=== PATIENT | female | born 1970 | race Caucasian/White ===

== ENCOUNTER → 2021-01-14 | Outpatient (CLI) | payer BC | LOC: CT 09:02 | DX: R19.7 Diarrhea, unspecified (principal); R10.13 Epigastric pain; K29.90 Gastroduodenitis, unspecified, without bleeding; R11.0 Nausea | CPT/HCPCS: 36415; 82565; 84520; Q9967 ==

== ENCOUNTER → 2021-02-04 | Outpatient (CLI) | payer BC | LOC: NM 12:27 | DX: R10.13 Epigastric pain (principal) | CPT/HCPCS: 78264; A9541 ==